=== PATIENT | male | born 1975 | race Caucasian/White ===

== ENCOUNTER 2019-06-04 11:25 | Emergency (ER) | payer OTHER ==
[2019-06-04 11:46] VITALS: BP 114/71
--- NOTE | 2019-06-04 12:10 | UC ---
Ear Complaint HPI - HPI Summary HPI Summary: 44-year-old male who has had cold symptoms for approximately 3 weeks and now sinus pressure and postnasal drainage. He also complains of his ears feeling plugged. - History of Current Complaint Chief Complaint: UCEar Stated Complaint: SINUSES/BILAT EAR PAIN Time Seen by Provider: 06/04/19 12:09 Hx Obtained From: Patient Onset/Duration: Gradual Onset, Lasting Weeks Severity Initially: Mild Severity Currently: Moderate Pain Intensity: 7 Aggravating Factors: Nothing Alleviating Factors: Nothing Associated Signs/Symptoms: Positive: URI Symptoms - Allergies/Home Medications Allergies/Adverse Reactions: Allergies Allergy/AdvReac Type Severity Reaction Status Date / Time No Known Allergies Allergy Verified 06/04/19 11:38 Home Medications: Home Medications Amoxicillin PO (*) [Amoxicillin 875 MG (*)] 875 mg PO BID 10 Days #20 tab [Rx] Ibuprofen TAB* [Advil TAB*] 400 mg PO Q6H PRN 06/04/19 [History Confirmed ] PMH/Surg Hx/FS Hx/Imm Hx Previously Healthy: Yes - Surgical History Surgical History: Yes Surgery Procedure, Year, and Place: knee arthoscopys and left mcl and acl repairs - Family History Known Family History: Positive: Unknown - Social History Lives: With Family Alcohol Use: Rare Substance Use Type: None Smoking Status (MU): Never Smoked Tobacco Review of Systems All Other Systems Reviewed And Are Negative: Yes ENT: Positive: Ear Ache - Both ears feel plugged, Nasal Discharge, Sinus Congestion, Sinus Pain/Tenderness Is Patient Immunocompromised?: No Physical Exam Triage Information Reviewed: Yes Appearance: Well-Appearing, No Pain Distress, Well-Nourished Vital Signs: Initial Vital Signs Temp 98.2 F 06/04/19 11:40 Pulse 62 06/04/19 11:40 Resp 18 06/04/19 11:40 BP 114/71 06/04/19 11:40 Pulse Ox 100 06/04/19 11:40 Vital Signs Reviewed: Yes Eyes: Positive: Conjunctiva Clear ENT: Positive: Hearing grossly normal, Pharynx normal, Nasal congestion, Nasal drainage - Yellow nasal coryza bilaterally, TMs normal - Both tympanic membranes injected but with good landmarks., Uvula midline. Negative: Tonsillar swelling, Tonsillar exudate, Trismus, Muffled voice, Hoarse voice Neck: Positive: Supple, Nontender, No Lymphadenopathy Respiratory: Positive: Lungs clear, Normal breath sounds, No respiratory distress, No accessory muscle use Cardiovascular: Positive: RRR, No Murmur, Pulses Normal, Brisk Capillary Refill Musculoskeletal Exam: Normal Neurological Exam: Normal Psychological Exam: Normal Skin Exam: Normal Ear Complaint Course/Dx - Course Course Of Treatment: Patient is comfortable here. - Differential Dx/Diagnosis Provider Diagnosis: Sinusitis Discharge ED - Sign-Out/Discharge Documenting (check all that apply): Patient Departure All imaging exams completed and their final reports reviewed: No Studies - Discharge Plan Condition: Good Disposition: HOME Prescriptions: Amoxicillin PO (*) [Amoxicillin 875 MG (*)] 875 mg PO BID 10 Days #20 tab Patient Education Materials: Sinusitis (ED) Referrals: [facility] [Outside] [facility] [Outside] No Primary Care Phys,[facility] [Primary Care Provider] - Additional Instructions: Increase fluids, follow up with your primary care provider or [facility] in 5-6 days if no improvement. - Billing Disposition and Condition Condition: GOOD Disposition: Home
== END 2019-06-04 12:26 | disposition home or self-care (01) ==
LOC: UCCORT 11:25
DX: J32.9 Chronic sinusitis, unspecified (principal)
CPT/HCPCS: 99212; G0463